=== PATIENT | male | born 1950 | race Caucasian/White ===

== ENCOUNTER → 2016-10-18 | Outpatient (CLI) | payer MEDICARE, OTHER ==
[~2016-10-18] MED LIST: ACETAMINOPHEN PO; ALBUTEROL17 GM INH; ALPRAZOLAM; ALPRAZOLAM PO; ANDROGEL2.5 GM TOP; ASPIRIN EC81 M1 PO; ASPIRIN PO; ASPIRIN81 M1 PO; AUGMENTIN PO; BREO ELLIPTA 21 EACH; CALCITRIOL0.25 MC1 PO; CELEBREX PO; CELEXA PO; COUMADIN; COUMADIN PO; COUMADIN5 MG PO; FOLIC ACID PO; FOLIC ACID1 MG PO; KEFLEX PO; LASIX PO; LIPITOR PO; LISINOPRIL PO; LISINOPRIL10 MG PO; LISINOPRIL20 MG PO; LOVENOX SUBQ; NEURONTIN300 MG PO; NEURONTIN800 MG PO; NEXIUM PO; PERCOCET 5-3251 TAB PO; SIMVASTATIN20 MG PO; SPIRIVA RESPIMAT4 G1 INH; STOOL SOFTENER1 EAC1 PO; TOPROL XL 50 MG50 MG PO; TOPROL XL PO; TYLENOL325 M1 PO; ULTRAM PO; VICODIN 5/500 T1 TAB PO; XANAX0.5 MG PO; ZESTRIL40 MG PO; ZOCOR PO; ZYLOPRIM100 MG PO
--- NOTE | ~2016-10-18 | US136 ---
[facility] A Service of [facility] RADIOLOGY TEXT RESULTS PATIENT: KIARA DOBSON LOCATION: CNIV : 48 UNIT #: [id number] AGE: [address]: Steven Marques MD SEX: M ORDER DR: [id number] [facility] [address] [place], [place] [address] [id number] O MR#: [id number] Acc #: [id number] NAME: KIARA DOBSON : 1950 SEX: M STUDY DATE/TIME: 10/18/2016 12:58 UNIT: CNIV ROOM: STUDY DESCRIPTION: U/L [facility] Art Study [facility] Bil Attending Physician: Steven Stewart M.D. Referring Physician: Steven Stewart M.D. Ordering Physician: Steven Stewart M.D. Primary Care Physician: Alana Bonner M.D. MEDICAL IMAGING REPORT This report is preliminary unless electronic signature is present EXAM Bilateral ankle-brachial indices. INDICATIONS Bilateral claudication. TECHNIQUE Sequential pressures were obtained through both lower extremities. Pulse volume recordings were generated. Comparison is made to the patient's prior study from January 05, 2016. FINDINGS I think that the ankle-brachial indices on the right are probably stable when compared to last year's study. Ankle-brachial index at the dorsalis pedis artery on the right is 0.88 and at the posterior tibial artery on the right is 0.91. The ankle-brachial index at the posterior tibial artery on the left is 0.63 and at the dorsalis pedis artery on the left is 0.71. This has actually slightly improved when compared to the prior study, and the pulse volume recordings actually appear improved on the left when compared to the prior exam. Toe-brachial indices remain diminished at 0.55 on the right and 0.51 on the left, which is stable when compared to last year's study. IMPRESSION Ankle-brachial indices are diminished bilaterally. This is more significant on the left although, actually, ankle-brachial indices are improved when compared to last year's study. The findings are most suggestive of multiple levels of arterial disease. This could certainly be better characterized with CT angiography of the abdomen and pelvis with bilateral lower extremity runoff. Patient's toe-brachial indices are diminished as well. It is unclear if this is related to small vessel disease or inflow disease, or a combination of both, but again it appears stable when compared to last year's study. [facility] A Service of [facility] RADIOLOGY TEXT RESULTS PATIENT: KIARA DOBSON LOCATION: [facility] : 48 UNIT #: [id number] AGE: [address]: Steven Marques MD SEX: M ORDER DR: Dictated by... Lilly Lira M.D. THIS IS AN ELECTRONICALLY VERIFIED REPORT Lilly Lira M.D. at 10/19/2016 8:42 AM AFF/psc TD: 10/18/2016 21:44 JOB #: [id number] MEDICAL IMAGING REPORT COPY
--- NOTE | ~2016-10-18 | US137 ---
[facility] A Service of [facility] & [facility] RADIOLOGY TEXT RESULTS PATIENT: KIARA DOBSON LOCATION: CNIV : 48 UNIT #: [id number] AGE: [address]: Steven Marques MD SEX: M ORDER DR: [id number] [facility] [address] [place], [place] [address] [id number] O MR#: [id number] Acc #: [id number] NAME: KIARA DOBSON : 1950 SEX: M STUDY DATE/TIME: 10/18/2016 14:02 UNIT: CNIV ROOM: STUDY DESCRIPTION: US UE Art/Art Grafts Comp Brad Attending Physician: Steven Marques Referring Physician: Steven Marques Ordering Physician: Steven Stewart M.D. Primary Care Physician: Alana Bonner M.D. MEDICAL IMAGING REPORT This report is preliminary unless electronic signature is present EXAM Arterial duplex Doppler bilateral upper extremities. INDICATIONS Status post bilateral upper extremity bypass. Observation for patency. PROCEDURE Asencio-scale, color Doppler and spectral imaging right and left arm. COMPARISON 01/05/2016 FINDINGS The graft in the right and left arm in the region of the antecubital fossas is patent. Major arteries in the right and left arm are patent and show expected arterial waveforms. IMPRESSION Patent grafts in the right and left arm. Dictated by... Gerson Espinal M.D. THIS IS AN ELECTRONICALLY VERIFIED REPORT Gerson Espinal M.D. at 10/26/2016 2:11 PM EED/psc TD: 10/21/2016 22:27 JOB #: [id number] MEDICAL IMAGING REPORT COPY
--- NOTE | ~2016-10-18 | US37 ---
[facility] A Service of [facility] RADIOLOGY TEXT RESULTS PATIENT: KIARA DOBSON LOCATION: CNIV : 48 UNIT #: [id number] AGE: [address]: Steven Marques MD SEX: M ORDER DR: [id number] [facility] [address] [place], [place] [address] [id number] O MR#: [id number] Acc #: [id number] NAME: KIARA DOBSON : 1950 SEX: M STUDY DATE/TIME: 10/18/2016 13:31 UNIT: CNIV ROOM: STUDY DESCRIPTION: US Carotid W/Doppler Bilateral Attending Physician: Steven Stewart M.D. Referring Physician: Steven Stewart M.D. Ordering Physician: Steven Stewart M.D. Primary Care Physician: Alana Bonner M.D. MEDICAL IMAGING REPORT This report is preliminary unless electronic signature is present EXAM Bilateral carotid duplex Doppler INDICATIONS Heart disease, hypertension, hypercholesterolemia. Numbness in both arms. PROCEDURE Asencio-scale, color Doppler and spectral imaging bilateral carotid and vertebral systems. Carotid flow assessed using NASCET like methodology. COMPARISON 01/05/2016 FINDINGS Scattered plaque in both carotid systems. Peak systolic velocity right ICA measures 61 cm/sec, left ICA measures 83 cm/sec. Flow in the external carotid vertebral artery is directed antegrade. ICA/CCA ratio measures 0.9 on the right and 1.2 on the left. IMPRESSION Mild scattered carotid plaque. No evidence for hemodynamically significant stenosis. Dictated by... Gerson Espinal M.D. THIS IS AN ELECTRONICALLY VERIFIED REPORT Gerson Espinal M.D. at 10/19/2016 7:37 AM EED/psc TD: 10/18/2016 21:12 JOB #: [id number] [facility] A Service of [facility] RADIOLOGY TEXT RESULTS PATIENT: KIARA DOBSON LOCATION: CNIV : 48 UNIT #: [id number] AGE: [address]: Steven Marques MD SEX: M ORDER DR: MEDICAL IMAGING REPORT COPY
== END | disposition home or self-care (01) ==
LOC: CNIV 12:25
DX: I65.23 Occlusion and stenosis of bilateral carotid arteries (principal); I73.9 Peripheral vascular disease, unspecified; Z79.899 Other long term (current) drug therapy
CPT/HCPCS: 93880; 93922; 93930

== ENCOUNTER → 2016-11-21 | Outpatient (CLI) | payer MEDICARE, OTHER ==
--- NOTE | ~2016-11-21 | EKG ---
PATIENT: KIARA DOBSON UNIT #: [id number] Ventricular Rate: 76 BPM Atrial Rate: 84 BPM QRS Duration: 154 ms Q-T Interval: 490 ms QTC Calculation(Bezet): 551 ms Calculated R [address]: -95 degrees Calculated T [address]: 63 degrees Diagnosis Line: Suspect arm lead reversal, interpretation Diagnosis Line: assumes no reversal Diagnosis Line: Atrial fibrillation with a competing junctional Diagnosis Line: pacemaker Diagnosis Line: Electronic ventricular pacemaker Diagnosis Line: Lateral infarct , age undetermined Diagnosis Line: Inferior infarct , age undetermined Diagnosis Line: Abnormal ECG Diagnosis Line: When compared with ECG of 24-JAN-2015 20:48, Diagnosis Line: No significant change was found Diagnosis Line: Confirmed by STACEY GALLEGO MD ([id number]) on 11/22/2016 Diagnosis Line: 7:54:51 PM INTERPRETING MD: JULIÁN STEELE
[2016-11-21 10:16] LABS: BASOPHIL# 0.1 X10e3 (0-0.3); BASOPHIL% 0.9 % (0-2.5); EOSINOPHIL# 0.3 X10e3 (0-0.7); EOSINOPHIL% 2.1 % (0.0-7.0); HEMATOCRIT 33.8 % (38.0-50.0); HEMOGLOBIN 10.4 gm/dL (13.0-16.0); LYMPHOCYTE# 1.3 X10e3 (1.0-3.5); LYMPHOCYTE% 10.9 % (17.0-45.0); MEAN CELL VOLUME 84.9 FL (83-96); MEAN CORPUSCULAR HEMOGLOBIN 26.1 PG (28-34); MEAN CORPUSCULAR HGB CONC 30.7 g/dL (30-36); MEAN PLATELET VOLUME 7.2 FL (6.5-11.5); MONOCYTE% 8.1 % (3.0-12.0); NEUTROPHIL# 9.6 X10e3 (1.5-7.1); PLATELET COUNT 268 X10e3 (140-420); RED BLOOD COUNT 3.99 X10e (3.90-5.60); WHITE BLOOD COUNT 12.3 X10e3 (4.0-10.5)
[2016-11-21 10:20] LABS: DIFF IND NO
[2016-11-21 10:29] LABS: INR 1.2; PARTIAL THROMBOPLASTIN TIME 26.2 SECONDS (23.5-31.3); PROTHROMBIN TIME (PATIENT) 12.7 SECONDS (9.6-11.5)
[2016-11-21 11:01] LABS: CALCIUM SERUM 9.1 mg/dL (8.4-10.2); CREATININE SERUM 1.5 mg/dL (0.6-1.4); GLOM FILT RATE Estimated 47.2 mL/min (>60); POTASSIUM 3.8 mmol/L (3.5-5.1)
== END | disposition home or self-care (01) ==
LOC: CSSDAY 09:20
PROVIDERS: Internal Medicine Cardiovascular Disease
PROC: 4A023N8 Measurement of Cardiac Sampling and Pressure, Bilateral, Percutaneous Approach (ICD-10-PCS; principal; 2016-11-21)
PROC: B211YZZ Fluoroscopy of Multiple Coronary Arteries using Other Contrast (ICD-10-PCS; 2016-11-21)
PROC: B215YZZ Fluoroscopy of Left Heart using Other Contrast (ICD-10-PCS; 2016-11-21)
DX: I27.2 Other secondary pulmonary hypertension (principal); I35.0 Nonrheumatic aortic (valve) stenosis; G47.33 Obstructive sleep apnea (adult) (pediatric); R93.1 Abnormal findings on diagnostic imaging of heart and coronary circulation; R07.89 Other chest pain; F41.9 Anxiety disorder, unspecified; Z79.01 Long term (current) use of anticoagulants; I44.30 Unspecified atrioventricular block; K21.0 Gastro-esophageal reflux disease with esophagitis; E78.5 Hyperlipidemia, unspecified; I50.9 Heart failure, unspecified; E66.9 Obesity, unspecified; Z68.34 Body mass index [BMI] 34.0-34.9, adult; Z87.891 Personal history of nicotine dependence; F32.9 Major depressive disorder, single episode, unspecified; G62.9 Polyneuropathy, unspecified; F52.21 Male erectile disorder; M15.9 Polyosteoarthritis, unspecified; N28.9 Disorder of kidney and ureter, unspecified; M62.838 Other muscle spasm; M54.12 Radiculopathy, cervical region; M54.5 Low back pain; M10.9 Gout, unspecified; D68.59 Other primary thrombophilia; R74.8 Abnormal levels of other serum enzymes; Z79.82 Long term (current) use of aspirin; Z79.899 Other long term (current) drug therapy; Z86.73 Personal history of transient ischemic attack (TIA), and cerebral infarction without residual deficits; Z82.49 Family history of ischemic heart disease and other diseases of the circulatory system; Z82.3 Family history of stroke; Z98.1 Arthrodesis status; Z88.8 Allergy status to other drugs, medicaments and biological substances
CPT/HCPCS: 80048; 82810; 85025; 85347; 85610; 85730; 93005; C1769; C1887; C1894; J1644; J2250; J3010